=== PATIENT | female | born 1970 | race Caucasian/White ===

== ENCOUNTER → 2016-11-14 | Outpatient (CLI) | payer OTHER ==
--- NOTE | 2016-11-14 18:23 | DX ---
Left Foot and Left Fifth Toe, at 12:13 PM Clinical History: 46-year-old female who hit her left fifth digit on a dresser one week ago and bruis ing is now moving to the second and third metatarsals. Rule out fracture. ICD 10 Diagnostic Codes: M79.673 and M79.676. COMPARISON STUDY: None. FINDINGS: Left Foot (3 Views): There are obliquely-oriented fractures through the diaphyseal portion of the fif th toe proximal phalanx. There is no fracture or dislocation identified with respect to the second or third metatarsals. The tarsometatarsal alignment is anatomic. There is an unfused os trigonum tube pusher ior to the talus. There is a small posterior calcaneal enthesophyte at the Achilles tendon insertion point. IMPRESSION: Obliquely-oriented fracture associated with the fifth toe proximal phalanx. Left Fifth Toe (2 Views): There are 2 obliquely-oriented fracture lines involving the [id number] d iaphyseal portions of the fifth toe proximal phalanx. There is no intra-articular extension, or joint malalignment. There is diffuse soft tissue swelling. IMPRESSION: Nondisplaced fracture involving the fifth toe proximal phalanx.
--- NOTE | 2016-11-14 18:23 | DX ---
Left Foot and Left Fifth Toe, at 12:13 PM Clinical History: 46-year-old female who hit her left fifth digit on a dresser one week ago and bruis ing is now moving to the second and third metatarsals. Rule out fracture. ICD 10 Diagnostic Codes: M79.673 and M79.676. COMPARISON STUDY: None. FINDINGS: Left Foot (3 Views): There are obliquely-oriented fractures through the diaphyseal portion of the fif th toe proximal phalanx. There is no fracture or dislocation identified with respect to the second or third metatarsals. The tarsometatarsal alignment is anatomic. There is an unfused os trigonum process trainer ior to the talus. There is a small posterior calcaneal enthesophyte at the Achilles tendon insertion point. IMPRESSION: Obliquely-oriented fracture associated with the fifth toe proximal phalanx. Left Fifth Toe (2 Views): There are 2 obliquely-oriented fracture lines involving the [id number]-[id number] d iaphyseal portions of the fifth toe proximal phalanx. There is no intra-articular extension, or joint malalignment. There is diffuse soft tissue swelling. IMPRESSION: Nondisplaced fracture involving the fifth toe proximal phalanx.
== END ==
LOC: FIMAGING 12:00
PROVIDERS: ATTEND Family Medicine
DX: S92.515A Nondisplaced fracture of proximal phalanx of left lesser toe(s), initial encounter for closed fracture (principal)

== ENCOUNTER 2017-11-20 21:49 | Emergency (ER) | payer OTHER ==
[2017-11-20] MEDS ORDERED: KETOROLAC 30 MG/1 ML SDV IVP ONE (22:04)
[2017-11-20] MEDS ORDERED: NS 1,000 ML IV ONE ×2 (22:04)
[2017-11-20] MEDS ORDERED: ONDANSETRON 4 MG/2 ML VIAL IVP ONE (22:04)
[2017-11-20] MEDS ORDERED: OSELTAMIVIR PHOSPHATE 75 MG CAP PO ONE (22:05)
[2017-11-20] MEDS ORDERED: ACETAMINOPHEN 500 MG TAB PO ONE (22:06)
--- NOTE | 2017-11-20 22:13 | EDPHY ---
H & P Smoking Status: Never smoked Time Seen by Provider: 11/20/17 21:54 HPI/ROS: HPI Fatigue, fever/chills, nausea, diarrhea, muscle aches. 47-year-old female by private vehicle. She complains of flu-like symptoms starting earlier today. She reports that she developed diarrhea earlier today and then this evening started feeling febrile then developed chills, has been feeling very fatigued and has developed muscle aches and joint aches. No cough , no upper respiratory symptoms. 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 ROS: Constitutional: As above. Eyes: No discharge. No changes in vision. ENT: No sore throat. No nasal congestion or rhinorrhea. Respiratory: No cough. No shortness of breath. Cardiac: No chest pain, no palpitations. Gastrointestinal: No abdominal pain, no vomiting, as above. Genitourinary: No hematuria. No dysuria or increased frequency with urination. Musculoskeletal: As above. Skin: No rashes. Neurological: No headache. No focal weakness or altered sensation. Past medical history: Colorectal cancer. She is not on chemotherapy. She was not vaccinated for influenza. Social history: Nonsmoker. No alcohol. Here by herself. Physical Exam: General Appearance: Alert, no distress. This patient is responding to questions appropriately and in full sentences. This patient appears well- hydrated and well-nourished. Eyes: Pupils equal and round no pallor or injection. No lid edema, erythema or injection. Respiratory: There are no retractions, lungs are clear to auscultation with good air movement bilaterally. Cardiovascular: Regular rate and rhythm. No murmur. Gastrointestinal: Abdomen is soft and nontender, no masses, bowel sounds normal. No focal tenderness at McBurney's point. No Becerra sign. Neurological: Motor sensory function is grossly intact. Cranial nerves are normal. Gait is normal. Skin: Warm and dry, no rashes. Musculoskeletal: Neck is supple and nontender. Extremities are symmetrical. All joints range without pain or impingement. Psychiatric: No agitation. No depression. Database: EKG: Imaging: Procedures: Emergency department course: IV was placed. Vital signs reviewed. She will be given 1-2 L of IV normal saline for dehydration. She has no contraindications to NSAIDs. No history of renal dysfunction or peptic ulcer disease. She will be given 30 mg of IV Toradol for fever and myalgias. She will be given 4 mg of IV Zofran. I discussed administration of Tamiflu with her. She falls within the recommended treatment window. Once her nausea is treated she will be given 75 mg of oral Tamiflu and a g of oral Tylenol. 11:00 p.m., the patient is finishing her 1st L of fluid. She will get an additional 2nd L of fluid. Care will be turned over to Dr. Manoj Mireles at this time. Expected disposition is discharged to home. Differential Diagnosis: The differential diagnosis on this patient includes but is not limited to influenza, viral syndrome. Serious bacterial infection unlikely. This represents a partial list of diagnoses considered. These considerations are based on history, physical exam, past history, reassessment and diagnostic testing. (Nieves Almonte) Constitutional: Initial Vital Signs Temperature (C) 38.4 C H 11/20/17 22:21 Heart Rate 102 H 11/20/17 22:21 Respiratory Rate 20 11/20/17 22:21 Blood Pressure 102/57 L 11/20/17 22:21 O2 Sat (%) 92 11/20/17 22:21 O2 Delivery Mode Room Air Allergies/Adverse Reactions: No Known Allergies Allergy (Unverified 11/20/17 22:06) Home Medications: Medication Instructions Recorded Bismuth Subsalicylate 11/20/17 [Pepto-Bismol] Diphenhydra/Phenyleph/Acetamin 11/20/17 [Theraflu Nt Severe Cld-Cgh Pkt] Ondansetron Odt [Zofran Odt] 4 - 8 mg PO Q4PRN PRN #4 tab 11/20/17 Oseltamivir Phosphate [Tamiflu 75 75 mg PO BID #10 cap 11/20/17 mg (RX)] Zicam 11/20/17 Medical Decision Making ED Course/Re-evaluation: This patient was signed over to me at 11 p.m. after receiving Toradol and Zofran with improvement in her flu symptoms. She also received saline bolus at the time of discharge felt significantly improved. She will go home on Zofran if needed for nausea vomiting, Tamiflu, NSAIDs and Tylenol. She understands need to return to the emergency department should she develop any worsening symptoms. She will follow up with primary care physician for any ongoing symptoms. (Manoj Mireles) - Data Points Medications Given: Discontinued Medications Acetaminophen (Tylenol) 1,000 mg PO EDNOW ONE Stop: 11/20/17 22:07 Last Admin: 11/20/17 23:10 Dose: 1,000 mg Sodium Chloride (Ns) 1,000 mls @ 0 mls/hr IV EDNOW ONE; Wide Open PRN Reason: Protocol Stop: 11/20/17 22:05 Last Admin: 11/20/17 22:32 Dose: 1,000 mls Sodium Chloride (Ns) 1,000 mls @ 0 mls/hr IV EDNOW ONE; Wide Open PRN Reason: Protocol Stop: 11/20/17 22:05 Last Admin: 11/20/17 23:07 Dose: 1,000 mls Ketorolac Tromethamine (Toradol) 30 mg IVP EDNOW ONE Stop: 11/20/17 22:05 Last Admin: 11/20/17 22:33 Dose: 30 mg Ondansetron HCl (Zofran) 4 mg IVP EDNOW ONE Stop: 11/20/17 22:05 Last Admin: 11/20/17 22:33 Dose: 4 mg Oseltamivir Phosphate (Tamiflu) 75 mg PO EDNOW ONE Stop: 11/20/17 22:06 Last Admin: 11/20/17 23:10 Dose: 75 mg Departure - Departure Disposition: Home, Routine, Self-Care Clinical Impression: Influenza Condition: Good Instructions: Ondansetron (By mouth), Oseltamivir (By mouth), Influenza (ED) Additional Instructions: Read and follow provided instructions. Follow-up with your primary care physician in 1-2 days for re-evaluation. Take medication as prescribed. Keep well hydrated. Zofran if needed for nausea or vomiting You can start taking ibuprofen tomorrow morning as needed for muscle aches and joint aches as well as fever control. You can take Tylenol with this as well as directed. Ibuprofen dosin mg every 6 hours with meals for the next 3 days only. Take only as needed for pain. Return to the emergency department for worsening symptoms or other serious concerns. Referrals: Varsha Wei MD [Primary Care Provider] - As per Instructions Prescriptions: Ondansetron Odt [Zofran Odt] 4 - 8 mg PO Q4PRN PRN #4 tab PRN Reason: Vomiting Oseltamivir Phosphate [Tamiflu 75 mg (RX)] 75 mg PO BID #10 cap
[2017-11-20 22:24] VITALS: O2SAT 92
[2017-11-20 23:46] VITALS: PULSE 97; RESP 18
[2017-11-20 23:57] VITALS: BP 102/67; TEMP 100.6
== END 2017-11-20 23:58 | disposition home or self-care (01) ==
LOC: CED 21:49
DX: J11.1 Influenza due to unidentified influenza virus with other respiratory manifestations (principal); E86.9 Volume depletion, unspecified; Z85.038 Personal history of other malignant neoplasm of large intestine
CPT/HCPCS: 96374; J1885; J2405

== ENCOUNTER → 2019-01-27 | Outpatient (CLI) | payer OTHER | LOC: FIMAGING 10:59 | PROVIDERS: ATTEND Family Medicine | DX: Z12.31 Encounter for screening mammogram for malignant neoplasm of breast (principal); Z80.3 Family history of malignant neoplasm of breast ==